=== PATIENT | male | born 1985 | race Two or more races ===

== ENCOUNTER 2017-11-15 15:21 | Emergency (ER) | payer SELFPAY ==
[~2017-11-15] VITALS: Ht 167.6 cm; Wt 61.0 kg
[2017-11-15] MEDS ORDERED: KETOROLAC 30MG/ML VIAL IM ONE (17:30)
[2017-11-15] MEDS ORDERED: METOCLOPRAMIDE HCL 10MG/2ML VIAL IM ONE (17:30)
[2017-11-15] MEDS ORDERED: SODIUM CHLORIDE 0.9% 1,000 ML IV ONE (17:45)
[2017-11-15 19:38] VITALS: BP 124/75
== END 2017-11-15 19:58 | disposition home or self-care (01) ==
LOC: ER 15:21
DX: G44.009 Cluster headache syndrome, unspecified, not intractable (principal)
CPT/HCPCS: 96360; 96372; 99284; J1885; J2765; J7030

== ENCOUNTER 2021-07-06 17:00 | Emergency (ER) | payer MEDICAID ==
[~2021-07-06] VITALS: Ht 165.1 cm; Wt 77.0 kg
[2021-07-06 17:13] VITALS: BP 132/75
[2021-07-06 18:00] LABS: *AMPHETAMINES SCREEN URINE NEGATIVE (NEGATIVE); *BARBITURATES SCREEN URINE NEGATIVE (NEGATIVE); *BENZODIAZEPINES SCREEN URINE NEGATIVE (NEGATIVE); *COCAINE SCREEN URINE NEGATIVE (NEGATIVE); CANNABINOID URINE SCREEN NEGATIVE (NEGATIVE); PHENCYCLIDINE URINE SCREEN NEGATIVE (NEGATIVE)
[2021-07-06 18:01] LABS: METHADONE URINE SCREEN NEGATIVE (NEGATIVE); OPIATES URINE SCREEN NEGATIVE (NEGATIVE)
== END 2021-07-06 19:55 | disposition home or self-care (01) ==
LOC: ER 17:00
DX: Z13.9 Encounter for screening, unspecified (principal)
CPT/HCPCS: 80305; 99283